=== PATIENT | male | born 1980 | race African-American/Black ===

== ENCOUNTER → 2021-02-19 12:57 | Outpatient (CLI) | payer OTHER ==
--- NOTE | 2021-02-23 11:32 | ST ---
PATIENT:BEAU CARDOSO MEDICAL RECORD: [id number] SEX: M LOCATION:[facility] ORDER #: ADMISSION DATE: 02/19/21 AGE OF PATIENT: 40 REFERRING PHYSICIAN: INTERPRETING PHYSICIAN: STEPHANIE CARRION MD DATE OF SERVICE: 02/19/2021 PROCEDURE: Treadmill stress test. Baseline ECG is normal. Exercised for 8 minutes and 21 seconds. Maximum heart rate 103 beats per minute, 85% max predicted. No ECG changes of ischemia. No symptoms of ischemia. Normal blood pressure response to exercise. No arrhythmias noted. Good exercise tolerance for age. TRANSINT:[id number] Voice Confirmation ID: [id number] DOCUMENT ID: [id number] STEPHANIE CARRION MD at 1132 CC: [id number] DICTATION DATE: 02/20/21 0801 SCOUTS: 02/21/21 0509 DEP CLI 02/19/21 [place] [id number] [place] [address]
--- NOTE | 2021-02-23 11:32 | EC ---
PATIENT:BEAU CARDOSO DATE OF SERVICE: 02/19/21 SEX: M MEDICAL RECORD: [id number] DATE OF : 80 LOCATION:[facility] AGE OF PATIENT: 40 ADMISSION DATE: 02/19/21 REFERRING PHYSICIAN: INTERPRETING PHYSICIAN: STEPHANIE CARRION MD ECHOCARDIOGRAM REPORT ECHO CHARGES 4 ECHO COMPLETE Date: 02/19/21 CLINICAL DIAGNOSIS: AFIB/HEART MURMUR ECHOCARDIOGRAPHIC MEASUREMENTS (adult normal given) AC root (d.<3.7cm) 3.7 cm LV Septum d (<1.2 cm> 1.3 cm Valve Excursion 2.1 cm LV Septum (systole) 1.7 cm Left Atria (s.<4.0cm> 3.1 cm LVPW d(<1.2cm) 1.4 cm RV (d.<2.3cm) 4.2 cm LVPW (sytole) 1.6 cm LV diastole(<5.6CM) 4.5 cm MV E-F(>70mm/sec) cm LV systole 2.6 cm LVOT Diameter 2.3 cm MV exc.(>10mm) 1.0 cm Est.ejection fraction (50-75%) % DOPPLER: LVIT cm/sec A 68.0 cm/sec E 61.0 cm/sec LA cm/sec RVSP 22 mmHg LVOT 82 cm/sec AOP1/2T m/s Asc. Ao 119 cm/sec RVOT 72 cm/sec RA cm/sec PA 97 cm/sec AV Gradient Peak 5.63 mmHg AV Mean 2.96 mmHg AV Area 2.8 cm MV Gradient Peak 2.42 mmHg MV Mean 1.41 mmHg MV Area cm COMMENTS: Prefabricated Houses Trimmer: 2 PRINCESS FOFANA Housekeeper Manager: 3 Dr. Mcclain TAPE# PACS Pericardial Effusion N DATE OF SERVICE: Adequate 2D echo, color flow and spectral Doppler, and M-Mode LVH is present. LV internal dimension is normal. Wall motion is normal. EF is greater than or equal to 55%. Aortic valve is tricuspid. No evidence of stenosis by Doppler interrogation. Left atrium is normal at 3.1 cm. Mitral valve shows no prolapse. Trace MR. Right side is grossly normal. Trace TR. TRANSINT:[id number] Voice Confirmation ID: [id number] DOCUMENT ID: [id number] ECHOCARDIOGRAM REPORT [id number] BEAU CARDOSO,STEPHANIE Garcia MD at 1132 CC: [id number] DICTATION DATE: 02/20/21 08 [employer] MAKER: 02/20/21 1149 DEP CLI 02/19/21 [place] [id number] [place] [id number]
== END | disposition home or self-care (01) ==
LOC: D.HCCECHO 02-12 09:00
PROVIDERS: ATTEND Internal Medicine Interventional Cardiology
DX: I48.91 Unspecified atrial fibrillation (principal)